=== PATIENT | female | born 1970 | race Caucasian/White ===

== ENCOUNTER → 2017-01-16 | Outpatient (CLI) | payer OTHER | END | disposition home or self-care (01) | LOC: CFH 10:30 | PROVIDERS: ATTEND Family Medicine | DX: Z12.31 Encounter for screening mammogram for malignant neoplasm of breast (principal) | CPT/HCPCS: 77063; G0202 ==

== ENCOUNTER → 2017-08-05 | Outpatient (CLI) | payer OTHER | LOC: RAD 12:07 | PROVIDERS: ATTEND Internal Medicine Critical Care Medicine | DX: R06.02 Shortness of breath (principal) | CPT/HCPCS: 71046 ==

== ENCOUNTER → 2017-12-15 | Outpatient (CLI) | payer SELFPAY | END | disposition home or self-care (01) | LOC: CFH 10:02 | PROVIDERS: ATTEND Family Medicine | DX: R92.2 Inconclusive mammogram (principal); Z80.3 Family history of malignant neoplasm of breast | CPT/HCPCS: 76642 ==